=== PATIENT | male | born 1995 | race Caucasian/White ===

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

== ENCOUNTER 2017-04-07 22:02 | Emergency (ER) | payer OTHER ==
[~2017-04-07] VITALS: Ht 175.3 cm; Wt 71.7 kg
[~2017-04-07 22:02] MED LIST changes: -NAPR500T3 PO; +NAPR500T4 PO
--- OUTSIDE RECORDS SUMMARY | 2017-04-07 22:08 | XMS REPORT ---
Author INDIO Joaquin [employer] Address Unknown Phone Unavailable Care Team Providers Care Reference Librarian Name Role Phone INDIO VEGA CP Unavailable Allergies, Adverse Reactions, Alerts Substance Reaction Event Type Methylphenidate 36 Mg Tablet Extended Release 24hr increased impulsivity Non Drug Allergy Problems Problem Type Condition ICD-9 Code Onset Dates Condition Status Assessment Attention deficit disorder of childhood without mention of hyperactivity 314.00 Active Assessment Social phobia 300.23 Active Problem Adjustment disorder with disturbance of conduct 309.3 Active Problem Social phobia 300.23 Active Problem Attention deficit disorder of childhood without mention of hyperactivity 314.00 Active Problem STATE HEP A (ADULT) DX V05.3 Active Problem GARDASIL (HPV) DX V04.89 Active Problem Cough 786.2 Active Problem DTAP TEST V06.1 Active Medications Medication Code System Code Instructions Start Date End Date Status Dosage ZyrTEC NDC 0 10 mg October 16, 2013 1 Tablet by Oral route 1 time per day Adderall XR NDC [address]-52 20 MG Orally in the morning for ADHD August 27, 2014 2 capsule Procedures Procedure Coding System Code Date Office Visit, Est Pt., Level 4 CPT-4 28764 Dec 15, 2014 Vital Signs Date/Time: Dec 15, 2014 Temperature 98.6 F BMIPercentile 26.62 % Weight 132.5 lbs Height 68.5 in BMI 19.85 Index Blood Pressure Diastolic 75 mmHg Blood Pressure Systolic 118 mmHg Cardiac Monitoring Heart Rate 72 bpm Wt Percentile 29.04 % Ht Percentile 40.93 % Results No Known Results Summary Purpose [employer] Submission
--- OUTSIDE RECORDS SUMMARY | 2017-04-07 22:08 | XMS REPORT ---
Author Author OWEN VERGARA Organization [employer] Address Unknown Phone Unavailable Care Team Providers Care Head Of Quality Name Role Phone OWEN VERGARA CP Unavailable Allergies, Adverse Reactions, Alerts Substance Reaction Event Type Methylphenidate 36 Mg Tablet Extended Release 24hr increased impulsivity Non Drug Allergy Problems Problem Type Condition Code Onset Dates Condition Status Assessment Sore throat J02.9 Active Problem Asthma 493.90 Active Problem GERD (gastroesophageal reflux disease) 530.81 Active Problem Unspecified mood [affective] disorder F39 Active Problem Social phobia 300.23 Active Assessment Upper respiratory tract infection, unspecified type 465.9 Active Problem Attention deficit disorder of childhood without mention of hyperactivity 314.00 Active Problem Adjustment disorder with disturbance of conduct 309.3 Active Medications No Known Medications Procedures Procedure Coding System Code Date STREP A ASSAY W/OPTIC CPT-4 61895 May 12, 2015 Office Visit, Est Pt., Level 3 CPT-4 73379 May 12, 2015 Vital Signs Date/Time: May 12, 2015 Temperature 99 F BMIPercentile 51.8 % Weight 145.8 lbs Height 68.5 in BMI 21.84 Index Blood Pressure Diastolic 62 mmHg Blood Pressure Systolic 110 mmHg Cardiac Monitoring Heart Rate 60 bpm Wt Percentile 48.17 % Ht Percentile 39.03 % Results Name Result Date Reference Range Unit Abnormality Flag STREP A (IN HOUSE) ----STREP A Negative [id number] ----Control + [id number] ----Lot # [id number] ----Exp date 11/06/201620150512 Summary Purpose [employer] Submission
--- OUTSIDE RECORDS SUMMARY | 2017-04-07 22:08 | XMS REPORT ---
Author Author INDIO VEGA Organization [employer] Address Unknown Phone Unavailable Care Team Providers Care Electrical Hardware Engineer Name Role Phone INDIO VEGA CP Unavailable Allergies No Known Allergies Problems Problem Type Condition Code Onset Dates Condition Status Problem GERD (gastroesophageal reflux disease) 530.81 Active Problem Attention deficit disorder of childhood without mention of hyperactivity 314.00 Active Problem Asthma 493.90 Active Problem Adjustment disorder with disturbance of conduct 309.3 Active Problem Social phobia 300.23 Active Medications Medication Code System Code Instructions Start Date End Date Status Dosage Adderall XR [facility] [address]-41 20 MG Orally in the morning for ADHD Rebecca to sign for Ekaterina August 27, 2014 2 capsule Results No Known Results Summary Purpose [employer] Submission
--- OUTSIDE RECORDS SUMMARY | 2017-04-07 22:08 | XMS REPORT ---
Author INDIO Joaquin [employer] Address Unknown Phone Unavailable Care Team Providers Care Dietary Aide Name Role Phone INDIO VEGA CP Unavailable Allergies No Known Allergies Problems Problem Type Condition Code Onset Dates Condition Status Problem Asthma 493.90 Active Problem GERD (gastroesophageal reflux disease) 530.81 Active Problem Unspecified mood [affective] disorder F39 Active Problem Social phobia 300.23 Active Problem Attention deficit disorder of childhood without mention of hyperactivity 314.00 Active Problem Adjustment disorder with disturbance of conduct 309.3 Active Medications No Known Medications Results No Known Results Summary Purpose [employer] Submission
--- OUTSIDE RECORDS SUMMARY | 2017-04-07 22:08 | XMS REPORT ---
Author Author CRISTINA COHEN Organization [employer] Address Unknown Phone Unavailable Care Team Providers Care Analysis Consultant Name Role Phone CRISTINA COHEN CP Unavailable Allergies, Adverse Reactions, Alerts Substance Reaction Event Type Methylphenidate 36 Mg Tablet Extended Release 24hr increased impulsivity Non Drug Allergy Problems Problem Type Condition ICD-9 Code Onset Dates Condition Status Problem GERD (gastroesophageal reflux disease) 530.81 Active Problem Attention deficit disorder of childhood without mention of hyperactivity 314.00 Active Problem Asthma 493.90 Active Assessment Aseptic meningitis 047.9 Active Problem Adjustment disorder with disturbance of conduct 309.3 Active Problem Social phobia 300.23 Active Medications Medication Code System Code Instructions Start Date End Date Status Dosage Asmanex HFA [facility] [address]-70 100 MCG/ACT Inhalation Twice a day 2 puffs Protonix [facility] [address]-18 20 MG Orally Once a day 1 tablet ZyrTEC [facility] 0 10 mg October 16, 2013 1 Tablet by Oral route 1 time per day Adderall XR [facility] [address]-48 20 MG Orally in the morning for ADHD August 27, 2014 2 capsule Nasacort Allergy 24HR [facility] [address]406 55 MCG/ACT Nasally Once a day as needed for allergies 1 puff in each nostril Procedures Procedure Coding System Code Date Office Visit, New Pt., Level 3 CPT-4 97439 Dec 16, 2014 Vital Signs Date/Time: Dec 16, 2014 Temperature 97.7 F BMIPercentile 28.8 % Weight 133.5 lbs Height 68.5 in BMI 20.00 Index Blood Pressure Diastolic 78 mmHg Blood Pressure Systolic 106 mmHg Cardiac Monitoring Heart Rate 70 bpm Wt Percentile 30.79 % Ht Percentile 40.93 % Results No Known Results Summary Purpose [employer]Works Submission
--- OUTSIDE RECORDS SUMMARY | 2017-04-07 22:08 | XMS REPORT ---
Author Author BERLIN JUAREZ Organization [employer] Address Unknown Phone Unavailable Care Team Providers Care Generation Manager Name Role Phone BERLIN JUAREZ CP Unavailable Allergies, Adverse Reactions, Alerts Substance Reaction Event Type Methylphenidate 36 Mg Tablet Extended Release 24hr increased impulsivity Non Drug Allergy Problems Problem Type Condition ICD-9 Code Onset Dates Condition Status Problem GERD (gastroesophageal reflux disease) 530.81 Active Problem Attention deficit disorder of childhood without mention of hyperactivity 314.00 Active Problem Asthma 493.90 Active Assessment Allergic rhinitis 477.9 Active Assessment Weight loss 783.21 Active Problem Adjustment disorder with disturbance of conduct 309.3 Active Problem Social phobia 300.23 Active Medications Medication Code System Code Instructions Start Date End Date Status Dosage Adderall XR [facility] [address]-58 20 MG Orally in the morning for ADHD August 27, 2014 2 capsule Asmanex HFA [facility] [address]-33 100 MCG/ACT Inhalation Twice a day 2 puffs ZyrTEC NDC 0 10 mg oral Once a day October 16, 2013 1 Tablet by Oral route 1 time per day Nasacort Allergy 24HR [facility] [address]71 55 MCG/ACT Nasally Once a day as needed for allergies 1 puff in each nostril Protonix [facility] [address]-97 20 MG Orally Once a day 1 tablet Procedures Procedure Coding System Code Date Office Visit, Est Pt., Level 3 CPT-4 58503 Dec 31, 2014 Vital Signs Date/Time: Dec 31, 2014 Cardiac Monitoring Heart Rate 80 bpm Temperature 98.1 F Weight 127 lbs Wt Percentile 19.32 % Blood Pressure Diastolic 62 mmHg Blood Pressure Systolic 120 mmHg Results No Known Results Summary Purpose [employer]Works Submission
--- OUTSIDE RECORDS SUMMARY | 2017-04-07 22:08 | XMS REPORT ---
Author Author HOLLIE RAMÍREZ [facility] [place] [employer] Address Unknown Phone Unavailable Care Team Providers Care Octave Board Racker Name Role Phone HOLLIE RAMÍREZ CP Unavailable Allergies, Adverse Reactions, Alerts Substance Reaction Event Type Methylphenidate 36 Mg Tablet Extended Release 24hr increased impulsivity Non Drug Allergy Problems Problem Type Condition Code Onset Dates Condition Status Assessment Flu vaccine need Z23 Active Assessment Acute pharyngitis, unspecified J02.9 Active Assessment Seasonal allergies J30.2 Active Problem School physical exam Z02.0 Active Problem Asthma 493.90 Active Problem Unspecified mood [affective] disorder F39 Active Problem Adjustment disorder with disturbance of conduct 309.3 Active Problem Social phobia 300.23 Active Problem GERD (gastroesophageal reflux disease) 530.81 Active Problem Attention deficit disorder of childhood without mention of hyperactivity 314.00 Active Medications Medication Code System Code Instructions Start Date End Date Status Dosage Adderall XR [facility] [address]-51 20 MG Orally in the morning for ADHD Navarro to sign for Ekaterina August 27, 2014 2 capsule Claritin [facility] [address]-32 10 MG Orally Once a day Mar 04, 2015 May 03, 2015 1 tablet Procedures Procedure Coding System Code Date STREP A ASSAY W/OPTIC CPT-4 50635 Mar 04, 2015 FLUZONE QUAD (3 & UP)-SINGLE DOSE VIAL-SANOFI PASTEUR-2014 CPT-4 62507 Mar 04, 2015 MEASURE BLOOD OXYGEN LEVEL CPT-4 77522 Mar 04, 2015 Office Visit, Est Pt., Level 3 CPT-4 96623 Mar 04, 2015 SINGLE IMMUNIZATION ADMIN CPT-4 12502 Mar 04, 2015 Vital Signs Date/Time: Mar 04, 2015 BMIPercentile 41.34 % Temperature 98.8 F Wt Percentile 40.02 % Weight 140.2 lbs Height 68.5 in Oximetry 98 % Blood Pressure Diastolic 70 mmHg Blood Pressure Systolic 117 mmHg Cardiac Monitoring Heart Rate 111 bpm Ht Percentile 39.72 % BMI 21.00 Index Results Name Result Date Reference Range Unit Abnormality Flag STREP A (IN HOUSE) Immunizations Vaccine Administration Date FLUZONE QUAD (3 & UP)-SINGLE DOSE VIAL-SANOFI PASTEUR-2014Mar 04, 2015 Summary Purpose [employer]Works Submission
--- OUTSIDE RECORDS SUMMARY | 2017-04-07 22:08 | XMS REPORT ---
Author Author BERLIN JUAREZ Organization [employer] Address Unknown Phone Unavailable Care Team Providers Care Tattoo And Body Artist Name Role Phone BERLIN JUAREZ CP Unavailable Allergies, Adverse Reactions, Alerts Substance Reaction Event Type Methylphenidate 36 Mg Tablet Extended Release 24hr increased impulsivity Non Drug Allergy Problems Problem Type Condition Code Onset Dates Condition Status Assessment Adenopathy, cervical R59.0 Active Assessment Otitis media H66.90 Active Problem School physical exam Z02.0 Active Problem Asthma 493.90 Active Problem Unspecified mood [affective] disorder F39 Active Problem Adjustment disorder with disturbance of conduct 309.3 Active Problem Social phobia 300.23 Active Problem GERD (gastroesophageal reflux disease) 530.81 Active Problem Attention deficit disorder of childhood without mention of hyperactivity 314.00 Active Medications Medication Code System Code Instructions Start Date End Date Status Dosage Augmentin [facility] [address]-60 875-125 MG Orally every 12 hrs Mar 23, 2015 Apr 02, 2015 1 tablet [facility] [address]-43 7.5-325 MG Orally Once a day at hs prn Mar 23, 2015 Mar 30, 2015 1 tablet as needed Procedures Procedure Coding System Code Date THER/PROPH/DIAG INJ, SC/IM CPT-4 96677 Mar 23, 2015 Office Visit, Est Pt., Level 3 CPT-4 18245 Mar 23, 2015 ROCEPHIN 1 GM (IM) CPT-4 J0696 Mar 23, 2015 Vital Signs Date/Time: Mar 23, 2015 Temperature 98.6 F BMIPercentile 59.09 % Weight 148.8 lbs Height 68.5 in BMI 22.29 Index Blood Pressure Diastolic 70 mmHg Blood Pressure Systolic 118 mmHg Cardiac Monitoring Heart Rate 74 bpm Wt Percentile 54.65 % Ht Percentile 39.72 % Results No Known Results Summary Purpose [employer]ClinicalWorks Submission
--- OUTSIDE RECORDS SUMMARY | 2017-04-07 22:08 | XMS REPORT ---
Author Author INDIO VEGA Organization [employer] Address Unknown Phone Unavailable Care Team Providers Care Privacy Analyst Name Role Phone INDIO VEGA CP Unavailable [...] Date End Date Status Dosage Adderall XR [facility] [address]-55 20 MG Orally in the morning for ADHD Navarro to sign for Ekaterina August 27, 2014 2 capsule Results No Known Results Summary Purpose [employer]Works Submission
--- OUTSIDE RECORDS SUMMARY | 2017-04-07 22:08 | XMS REPORT ---
Author JHON Harrell Organization [employer] Address Unknown Phone Unavailable Care Team Providers Care Ground Instructor Basic Name Role Phone JHON CHACON CP Unavailable Allergies No Known Allergies Problems Problem Type Condition ICD-9 Code Onset Dates Condition Status Problem GERD (gastroesophageal reflux disease) 530.81 Active Problem Attention deficit disorder of childhood without mention of hyperactivity 314.00 Active Problem Asthma 493.90 Active Assessment TB skin/subcutaneous 017.00 Active Problem Adjustment disorder with disturbance of conduct 309.3 Active Problem Social phobia 300.23 Active Medications No Known Medications Results No Known Results Summary Purpose [employer] Submission
--- OUTSIDE RECORDS SUMMARY | 2017-04-07 22:08 | XMS REPORT ---
Author Author CRISTINA COHEN [facility] [employer] Address Unknown Phone Unavailable Care Team Providers Care Metal Reed Tuner Name Role Phone CRISTINA COHEN CP Unavailable [...]
--- OUTSIDE RECORDS SUMMARY | 2017-04-07 22:09 | XMS REPORT ---
Author Author OWEN VERGARA Organization [employer] Address Unknown Phone Unavailable Care Team Providers Care Factory Superintendent Name Role Phone OWEN VERGARA CP Unavailable Allergies, Adverse Reactions, Alerts Substance Reaction Event Type Methylphenidate 36 Mg Tablet Extended Release 24hr increased impulsivity Non Drug Allergy Problems Problem Type Condition Code Onset Dates Condition Status Problem Asthma 493.90 Active Problem GERD (gastroesophageal reflux disease) 530.81 Active Problem School physical exam Z02.0 Active Problem Social phobia 300.23 Active Assessment School physical exam Z02.0 Active Problem Attention deficit disorder of childhood without mention of hyperactivity 314.00 Active Problem Adjustment disorder with disturbance of conduct 309.3 Active Medications Medication Code System Code Instructions Start Date End Date Status Dosage Adderall XR [facility] [address]-20 20 MG Orally in the morning for ADHD Navarro to sign for Ekaterina August 27, 2014 2 capsule Procedures Procedure Coding System Code Date Office Visit, Est Pt., Level 3 CPT-4 18312 Mar 03, 2015 Vital Signs Date/Time: Mar 03, 2015 Temperature 98.7 F BMIPercentile 41.34 % Weight 140.2 lbs Height 68.5 in BMI 21.00 Index Blood Pressure Diastolic 70 mmHg Blood Pressure Systolic 116 mmHg Cardiac Monitoring Heart Rate 70 bpm Wt Percentile 40.02 % Ht Percentile 39.72 % Results No Known Results Summary Purpose [employer]ClinicalWorks Submission
--- OUTSIDE RECORDS SUMMARY | 2017-04-07 22:09 | XMS REPORT ---
Author Author INDIO VEGA [employer] Address Unknown Phone Unavailable Care Team Providers Care Motorcycle Technician Name Role Phone INDIO VEGA CP Unavailable Allergies No Known Allergies Problems Problem Type Condition Code Onset Dates Condition Status Problem School physical exam Z02.0 Active Problem [...] Date End Date Status Dosage Adderall XR [facility] [address]-60 20 MG Orally in the morning for ADHD Dr Amaya to sign for Ekaterina August 27, 2014 2 capsule Results No Known Results Summary Purpose [employer]ClinicalWorks Submission
--- OUTSIDE RECORDS SUMMARY | 2017-04-07 22:09 | XMS REPORT ---
Author JUSTIN Mcmahon Organization [employer] Address Unknown Phone Unavailable Care Team Providers Care Beauty Culturist Apprentice Name Role Phone JUSTIN OVALLE CP Unavailable Allergies No Known Allergies Problems Problem Type Condition ICD-9 Code Onset Dates Condition Status Problem GERD (gastroesophageal reflux disease) 530.81 Active Problem Attention deficit disorder of childhood without mention of hyperactivity 314.00 Active Problem Asthma 493.90 Active Assessment Encounter for PPD test V74.1 Active Problem Adjustment disorder with disturbance of conduct 309.3 Active Problem Social phobia 300.23 Active Medications No Known Medications Procedures Procedure Coding System Code Date TB INTRADERMAL TEST CPT-4 18712 Dec 29, 2014 Results No Known Results Summary Purpose [employer]Works Submission
--- OUTSIDE RECORDS SUMMARY | 2017-04-07 22:09 | XMS REPORT ---
Author Author ROMY GRAHAM Organization [employer] Address Unknown Phone Unavailable Care Team Providers Care Resource Engineer Name Role Phone ROMY GRAHAM CP Unavailable Allergies No Known Allergies Problems Problem Type Condition Code Onset Dates Condition Status Assessment Unspecified mood [affective] disorder F39 Active Assessment Attention deficit disorder of childhood without mention of hyperactivity 314.00 Active Problem School physical exam Z02.0 Active Problem Asthma 493.90 Active Problem Unspecified mood [affective] disorder F39 Active Problem Adjustment disorder with disturbance of conduct 309.3 Active Problem Social phobia 300.23 Active Problem GERD (gastroesophageal reflux disease) 530.81 Active Problem Attention deficit disorder of childhood without mention of hyperactivity 314.00 Active Medications No Known Medications Procedures Procedure Coding System Code Date Psych diagnostic evaluation, established patient CPT-4 09832 Mar 04, 2015 Results No Known Results Summary Purpose [employer]ClinicalWorks Submission
--- OUTSIDE RECORDS SUMMARY | 2017-04-07 22:09 | XMS REPORT ---
Author DARA Higgins Organization [employer] Address Unknown Phone Unavailable Care Team Providers Care Hand Cloth Folder Name Role Phone DARA ODOM CP Unavailable Allergies, Adverse Reactions, Alerts Substance Reaction Event Type Methylphenidate 36 Mg Tablet Extended Release 24hr increased impulsivity Non Drug Allergy Problems Problem Type Condition Code Onset Dates Condition Status Problem GERD (gastroesophageal reflux disease) 530.81 Active Problem Attention deficit disorder of childhood without mention of hyperactivity 314.00 Active Problem Asthma 493.90 Active Assessment URI (upper respiratory infection) J06.9 Active Problem Adjustment disorder with disturbance of conduct 309.3 Active Problem Social phobia 300.23 Active Medications Medication Code System Code Instructions Start Date End Date Status Dosage Lexapro [facility] [address]-51 10 MG Orally Once a day Jan 26, 2015 1 tablet Nasacort Allergy 24HR [facility] [address]70-[address]40 55 MCG/ACT Nasally Once a day as needed for allergies 1 puff in each nostril Adderall XR [facility] [address]-67 20 MG Orally in the morning for ADHD Rebecca to sign for Ekaterina August 27, 2014 2 capsule Zyrtec Allergy [facility] [address]-92 10 MG Orally Once a day prn Feb 10, 2015 Mar 12, 2015 1 capsule as needed Procedures Procedure Coding System Code Date Office Visit, Est Pt., Level 3 CPT-4 14521 Feb 10, 2015 Vital Signs Date/Time: Feb 10, 2015 Temperature 98.5 F BMIPercentile 31.11 % Weight 135.2 lbs Height 68.5 in BMI 20.26 Index Blood Pressure Diastolic 82 mmHg Blood Pressure Systolic 116 mmHg Cardiac Monitoring Heart Rate 84 bpm Wt Percentile 32.07 % Ht Percentile 40.1 % Results No Known Results Summary Purpose [employer] Submission
--- OUTSIDE RECORDS SUMMARY | 2017-04-07 22:09 | XMS REPORT ---
Author Author INDIO VEGA [employer] Address Unknown Phone Unavailable Care Team Providers Care Sales Director Name Role Phone INDIO VEGA CP Unavailable Allergies, Adverse Reactions, Alerts Substance Reaction Event Type Methylphenidate 36 Mg Tablet Extended Release 24hr increased impulsivity Non Drug Allergy Problems Problem Type Condition Code Onset Dates Condition Status Problem GERD (gastroesophageal reflux disease) 530.81 Active Problem Attention deficit disorder of childhood without mention of hyperactivity 314.00 Active Problem Asthma 493.90 Active Assessment JASWANT (generalized anxiety disorder) F41.1 Active Assessment ADHD (attention deficit hyperactivity disorder), combined type F90.2 Active Problem Adjustment disorder with disturbance of conduct 309.3 Active Problem Social phobia 300.23 Active Medications Medication Code System Code Instructions Start Date End Date Status Dosage Asmanex HFA [facility] [address]-96 100 MCG/ACT Inhalation Twice a day 2 puffs Lexapro [facility] [address]-87 10 MG Orally Once a day Jan 26, 2015 1 tablet Nasacort Allergy 24HR [facility] [address]39 55 MCG/ACT Nasally Once a day as needed for allergies 1 puff in each nostril Adderall XR [facility] [address]-37 20 MG Orally in the morning for ADHD Rebecca to sign for Ekaterina August 27, 2014 2 capsule ZyrTEC ND 0 10 mg oral Once a day October 16, 2013 1 Tablet by Oral route 1 time per day Procedures Procedure Coding System Code Date Office Visit, Est Pt., Level 4 CPT-4 34943 Jan 26, 2015 Vital Signs Date/Time: Jan 26, 2015 Cardiac Monitoring Heart Rate 68 bpm Weight 140.4 lbs Height 68.5 in Ht Percentile 40.1 % BMI 21.03 Index Blood Pressure Diastolic 80 mmHg Blood Pressure Systolic 120 mmHg BMIPercentile 42.57 % Wt Percentile 41.23 % Results No Known Results Summary Purpose [employer] Submission
--- OUTSIDE RECORDS SUMMARY | 2017-04-07 22:09 | XMS REPORT ---
Author FREDERICK Hartman [facility] [employer] Address Unknown Phone Unavailable Care Team Providers Care Culture Media Laboratory Assistant Name Role Phone FREDERICK CARLSON Unavailable Allergies, Adverse Reactions, Alerts Substance Reaction Event Type Methylphenidate 36 Mg Tablet Extended Release 24hr increased impulsivity Non Drug Allergy Problems Problem Type Condition Code Onset Dates Condition Status Assessment Chronic fatigue R53.82 Active Assessment Contusion of rib on right side, initial encounter S20.211A Active Problem Asthma 493.90 Active Problem GERD (gastroesophageal reflux disease) 530.81 Active Problem Unspecified mood [affective] disorder F39 Active Problem Social phobia 300.23 Active Assessment Body aches R52 Active Problem Attention deficit disorder of childhood without mention of hyperactivity 314.00 Active Problem Adjustment disorder with disturbance of conduct 309.3 Active Medications Medication Code System Code Instructions Start Date End Date Status Dosage Adderall XR [facility] [address]-51 20 MG Orally in the morning for ADHD Dr Amaya to sign for Ekaterina August 27, 2014 2 capsule Procedures Procedure Coding System Code Date COMPREHEN METABOLIC PANEL CPT-4 98662 Apr 27, 2015 ASSAY OF FREE THYROXINE CPT-4 36558 Apr 27, 2015 ASSAY OF CPK IN BLOOD CPT-4 79445 Apr 27, 2015 ASSAY OF FERRITIN CPT-4 33228 Apr 27, 2015 ASSAY OF IRON CPT-4 31089 Apr 27, 2015 ASSAY THYROID STIM HORMONE CPT-4 51755 Apr 27, 2015 RBC SED RATE, AUTOMATED CPT-4 71832 Apr 27, 2015 ASSAY OF CK (CPK) CPT-4 18070 Apr 27, 2015 ANTINUCLEAR ANTIBODIES CPT-4 99568 Apr 27, 2015 MANUAL CELL COUNT, EACH CPT-4 38019 Apr 27, 2015 COMPLEMENT, ANTIGEN CPT-4 56862 Apr 27, 2015 VENIPUNCT, ROUTINE* CPT-4 43656 Apr 27, 2015 IRON BINDING TEST CPT-4 51998 Apr 27, 2015 Office Visit, Est Pt., Level 4 CPT-4 41482 Apr 27, 2015 HETEROPHILE ANTIBODIES CPT-4 48214 Apr 27, 2015 Vital Signs Date/Time: Apr 27, 2015 Temperature 98.4 F BMIPercentile 54.87 % Weight 147.3 lbs Height 68.5 in BMI 22.07 Index Blood Pressure Diastolic 72 mmHg Blood Pressure Systolic 108 mmHg Cardiac Monitoring Heart Rate 62 bpm Wt Percentile 50.68 % Ht Percentile 39.03 % Results Name Result Date Reference Range Unit Abnormality Flag MONO TEST (IN HOUSE) ----RESULTS Negative [id number] ----Control Positive [id number] ----Lot # [id number] ----Exp date 06/14/[id number] ROUTINE VENIPUNCTURE Summary Purpose [employer] Submission
--- OUTSIDE RECORDS SUMMARY | 2017-04-07 22:09 | XMS REPORT ---
Author Author ROMY GRAHAM Organization [employer] Address Unknown Phone Unavailable Care Team Providers Care Milk Tanker Driver Name Role Phone ROMY GRAHAM CP Unavailable Allergies No Known Allergies Problems Problem Type Condition Code Onset Dates Condition Status Assessment Unspecified mood [affective] disorder F39 Active Problem Asthma 493.90 Active Problem GERD (gastroesophageal reflux disease) 530.81 Active Problem Unspecified mood [affective] disorder F39 Active Problem Social phobia 300.23 Active Assessment Attention deficit disorder of childhood without mention of hyperactivity 314.00 Active Problem Attention deficit disorder of childhood without mention of hyperactivity 314.00 Active Problem Adjustment disorder with disturbance of conduct 309.3 Active Medications No Known Medications Procedures Procedure Coding System Code Date Psychotherapy, patient &/family, 30 minutes, established patient CPT-4 08785 Apr 29, 2015 Results No Known Results Summary Purpose [employer] Submission
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
[2017-04-07] MEDS ORDERED: RT-ALBUTEROL/IPRATROPIUM 3 ML (DUONEB) VIAL INH ONE (22:30)
[2017-04-07 22:41] LABS: BASOPHILS % (AUTO) 0 % (0-10); EOSINOPHILS # (AUTO) 0.1 10^3/uL (0.0-0.3); EOSINOPHILS % (AUTO) 1 % (0-10); LYMPHOCYTES # (AUTO) 2.3 X 10^3 (1.0-4.0); LYMPHOCYTES % (AUTO) 15 % (12-44); MEAN CORPUSCULAR HEMOGLOBIN 31 PG (25-34); MEAN CORPUSCULAR HGB CONC 34 G/DL (32-36); MEAN CORPUSCULAR VOLUME 92 FL (80-99); MEAN PLATELET VOLUME 9.6 FL (7.4-10.4); MONOCYTES # (AUTO) 1.9 X 10^3 (0.0-1.0); MONOCYTES % (AUTO) 13 % (0-12); NEUTROPHILS # (AUTO) 10.6 X 10^3 (1.8-7.8); NEUTROPHILS % (AUTO) 71 % (42-75); PLATELET COUNT 256 10^3/uL (130-400); RED BLOOD COUNT 4.49 10^6/uL (4.35-5.85); RED CELL DISTRIBUTION WIDTH 14.4 % (10.0-14.5); WHITE BLOOD COUNT 14.9 10^3/uL (4.3-11.0)
[2017-04-07 23:08] LABS: ALANINE AMINOTRANSFERASE 195 U/L (0-55); ALBUMIN 4.1 GM/DL (3.2-4.5); ANION GAP 11 MMOL/L (5-14); ASPARTATE AMINO TRANSFERASE 149 U/L (5-34); BILIRUBIN,TOTAL 0.5 MG/DL (0.1-1.0); BLOOD UREA NITROGEN 11 MG/DL (7-18); BUN/CREATININE RATIO 13; CALCIUM 8.9 MG/DL (8.5-10.1); CARBON DIOXIDE 20 MMOL/L (21-32); CHLORIDE 109 MMOL/L (98-107); CREATININE SERUM 0.82 MG/DL (0.60-1.30); GFR ESTIMATED > 60; GLUCOSE 113 MG/DL (70-105); POTASSIUM 3.6 MMOL/L (3.6-5.0); SODIUM 140 MMOL/L (135-145); TOTAL PROTEIN 6.3 GM/DL (6.4-8.2)
[2017-04-07 23:12] LABS: BAND NEUTROPHILS 0 %; LYMPHOCYTES % (MANUAL) 17 %; NEUTROPHILS % (MANUAL) 69 %
[2017-04-07 23:13] LABS: ANISOCYTOSIS SLIGHT; BASOPHILS % (MANUAL) 0 %; EOSINOPHILS % (MANUAL) 0 %; POIKILOCYTOSIS SLIGHT; REACTIVE LYMPHOCYTES 4 %
[2017-04-07] MEDS ORDERED: cefTRIAXone INJECTION 1,000 MG in NS (IVPB) 50 ML IV ONE (23:15)
[2017-04-07] MEDS ORDERED: RX-ALBUTEROL INHALER (PROAIR) 8 GM IH STA (23:18)
[2017-04-07] MEDS ORDERED: CEFD300C3 PO (23:22)
[2017-04-07] MEDS ORDERED: GUAI1TBM19 PO (23:22)
[2017-04-07] MEDS ORDERED: BENZ-13 PO (23:22)
[2017-04-07] MEDS ORDERED: D-ME118S7 PO (23:22)
--- NOTE | 2017-04-07 23:26 | ED Cough/URI ---
General Chief Complaint: Cough/Cold/Flu Symptoms Stated Complaint: COUGH,CONGESTION Nursing Triage Note: PT TO ED 10 W/ C/O COUGH X1 WK. REPORTS WAS SEEN BY DR CONWAY X2 DAYS AGO BUT DENIES IMPROVEMENT. DOES REPORT ELEVATED TEMP THROUGHOUT THE WEEK. NO OTHER C/O VOICED Source: patient History of Present Illness Time seen by provider: 22:10 Initial Comments C/O NON-PRODUCTIVE COUGH AND FEVER X 1 WEEK TEMP HAS BEEN UP TO 102.8 ALL WEEK HAS SOME SHORTNESS OF BREATH AND WHEEZING AFTER COUGHING HARD SYMPTOMS WORSE X 2 DAYS CHANTELL IS CURRENTLY IN HOSPITAL WITH PNEUMONIA AND HE HAS BEEN VISITING HER THIS WEEK PT IS HOME ON LEAVE FOR 21 DAYS, FROM [address]. PT IS STATIONED IN [place] WAS SEEN BY POTATO PICKER AT DR. 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 [place] Allergies and Home Medications Allergies Coded Allergies: No Known Drug Allergies (Verified , 05/17/09) Home Medications Azithromycin 500 Mg Tablet, 500 MG PO DAILY, #5 FOR INFECTION Prescribed by: MARTÍN SALGADO on 04/07/17 2340 Benzonatate 100 Mg Capsule, 1-2 TAB PO TID, #30 Prescribed by: MARTÍN SALGADO on 04/07/17 2322 Cefdinir 300 Mg Capsule, 300 MG PO BID, #20 Prescribed by: MARTÍN SALGADO on 04/07/17 2322 D-Methorphan Hb/Prometh HCl 118 Ml Syrup, 1-2 TSP PO Q4H, #120 Prescribed by: MARTÍN SALGADO on 04/07/17 2322 Guaifenesin/Dextromethorphan 1 Each Tbmp.12hr, 1 EACH PO BID for 10 Days, #20 Prescribed by: MARTÍN SALGADO on 04/07/17 2322 Constitutional: see HPI, fever EENTM: see HPI, nose congestion Respiratory: see HPI, cough, short of breath, wheezing Cardiovascular: no symptoms reported Gastrointestinal: no symptoms reported Genitourinary: no symptoms reported Musculoskeletal: no symptoms reported Skin: no symptoms reported Psychiatric/Neurological: No Symptoms Reported Hematologic/Lymphatic: No Symptoms Reported Immunological/Allergic: see HPI Past Itpxhkl-Gyknsw-Ngteow Hx Patient Social History Alcohol Use: Denies Use Recreational Drug Use: No Smoking Status: Never a Smoker Recent Foreign Travel: No Contact w/Someone Who Travel: No Recent Infectious Disease Expo: No Recent Hopitalizations: Yes (PNEUMONIA AND ABD PAIN) Ebola Symptoms: Denies Symptoms Listed Immunizations Up To Date Tetanus Booster (TDap): Less than 5yrs PED Vaccines UTD: Yes Date of Influenza Vaccine: Jan 13, 2014 Seasonal Allergies Seasonal Allergies: No Surgeries History of Surgeries: Yes (RESECTION OF EPIDIDYMAL CYST, BMT'S; COLONOSCOPY) Surgeries: Adenoidectomy, Ear Surgery, Testicular, Tonsillectomy Respiratory History of Respiratory Disorde: Yes (EXERCISE INDUCED ASTHMA, FREQUENT BOUTS OF PNEUMONIA A CHILD) Respiratory Disorders: Asthma, Pneumonia Currently Using CPAP: No Currently Using BIPAP: No Cardiovascular History of Cardiac Disorders: No Neurological History of Neurological Disord: Yes (TOURETTE'S, 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) Neurological Disorders: Meningitis Reproductive System Hx Reproductive Disorders: No Sexually Transmitted Disease: No HIV/AIDS: No Gastrointestinal History of Gastrointestinal Di: Yes Gastrointestinal Disorders: Ulcer, Irritable Bowel Musculoskeletal History of Musculoskeletal Dis: Yes (RIGHT ARM FX, FINGERS/TOES FX) Musculoskeletal Disorders: Fractures Endocrine History of Endocrine Disorders: Yes Endocrine Disorders: Lupus HEENT History of HEENT Disorders: Yes HEENT Disorders: Chronic Ear Infection Cancer History of Cancer: No Psychosocial History of Psychiatric Problem: Yes (MOOD DISORDER) Behavioral Health Disorders: ADD/ADHD Integumentary History of Skin or Integumenta: No Blood Transfusions History of Blood Disorders: No Adverse Reaction to a Blood Tr: No Family Medical History Family Medial History: FH: Raynaud's phenomenon FH: depression 19 MOTHER G8 SISTER FH: lupus erythematosus 19 MOTHER G8 SISTER FH: osteoporosis 19 MOTHER FH: skin cancer 19 MOTHER Leesa thyroiditis 19 MOTHER Hemolytic anemia 19 MOTHER Hypertension 19 FATHER Hypotension 19 MOTHER POST TRAUMATIC STRESS DISORDER 19 MOTHER No Family History of: AIDS Abdominal aortic aneurysm Danial's disease Alcoholism Alzheimer's disease Aphasia Arthritis Asthma Cancer of mouth Cardiovascular disease Cataracts Colon cancer Completed stroke Congenital disease Congenital heart disease Coronary thrombosis Cystic fibrosis Deafness or hearing loss Dementia Diabetes mellitus Drug abuse Dysphasia Fibrocystic disease of breast Gastroenteritis Glaucoma Headache disorder Hypercholesterolemia Infertility Kidney disease Myocardial infarction Neoplasm Not obtainable due to adoption Osteoporosis Parkinson's disease Prostate cancer Psychosocial problem Respiratory disorder Seizure disorder Severe allergy Thyroid disease Tuberculosis Visual disorder Physical Exam Vital Signs Vital Sign - Last 12Hours 04/07/17 04/07/17 22:07 23:22 Temp 98.5 Pulse 119 Resp 20 B/P (MAP) 137/95 Pulse Ox 96 O2 Delivery Room Air Capillary Refill : General Appearance: WD/WN, no apparent distress, other (FREQUENT TIGHT COUGH) HEENT: PERRL/EOMI, TMs normal, pharynx normal, other (NASAL MUCOSAL EDEMA) Neck: non-tender, full range of motion, supple, normal inspection Respiratory: no respiratory distress, no accessory muscle use, decreased breath sounds (MILDLY DIMINISHED IN ALL LUNG RENDON) Cardiovascular: normal peripheral pulses, regular rate, rhythm, no murmur Gastrointestinal: normal bowel sounds, non tender, soft Extremities: normal inspection Neurologic/Psychiatric: assembler knife II-XII nml as tested, no motor/sensory deficits, alert, normal mood/affect, oriented x 3 Skin: normal color, warm/dry, No rash Focused Exam Evaluation Lactate Level Laboratory Tests 04/07/17 23:10: Lactic Acid Level 1.09 Lactic Acid Level Laboratory Tests Test 04/07/17 23:10 Lactic Acid Level 1.09 MMOL/L (0.50-2.00) Progress/Results/Core Measures Suspected Sepsis SIRS Temperature:98.5 Pulse: Respiratory Rate: Laboratory Tests 04/07/17 22:28: White Blood Count 14.9H Blood Pressure / Mean: Laboratory Tests 04/07/17 23:10: Lactic Acid Level 1.09 Laboratory Tests 04/07/17 22:28: Creatinine 0.82, Platelet Count 256, Total Bilirubin 0.5 Results/Orders Lab Results Laboratory Tests Test 04/07/17 22:28 04/07/17 23:10 Range/Units White Blood Count 14.9 H 4.3-11.0 10^3/uL Red Blood Count 4.49 4.35-5.85 10^6/uL Hemoglobin 14.1 13.3-17.7 G/DL Hematocrit 42 40-54 % Mean Corpuscular Volume 92 80-99 FL Mean Corpuscular Hemoglobin 31 25-34 PG Mean Corpuscular Hemoglobin Concent 34 32-36 G/DL Red Cell Distribution Width 14.4 10.0-14.5 % Platelet Count 256 130-400 10^3/uL Mean Platelet Volume 9.6 7.4-10.4 FL Neutrophils (%) (Auto) 71 42-75 % Lymphocytes (%) (Auto) 15 12-44 % Monocytes (%) (Auto) 13 H 0-12 % Eosinophils (%) (Auto) 1 0-10 % Basophils (%) (Auto) 0 0-10 % Neutrophils # (Auto) 10.6 H 1.8-7.8 X 10^3 Lymphocytes # (Auto) 2.3 1.0-4.0 X 10^3 Monocytes # (Auto) 1.9 H 0.0-1.0 X 10^3 Eosinophils # (Auto) 0.1 0.0-0.3 10^3/uL Basophils # (Auto) 0.0 0.0-0.1 10^3/uL Neutrophils % (Manual) 69 % Lymphocytes % (Manual) 17 % Monocytes % (Manual) 10 % Eosinophils % (Manual) 0 % Basophils % (Manual) 0 % Band Neutrophils 0 % Hypersegmented Neutrophils SLIGHT Reactive Lymphocytes 4 % Poikilocytosis SLIGHT Anisocytosis SLIGHT Elliptocytes SLIGHT Sodium Level 140 135-145 MMOL/L Potassium Level 3.6 3.6-5.0 MMOL/L Chloride Level 109 H 98-107 MMOL/L Carbon Dioxide Level 20 L 21-32 MMOL/L Anion Gap 11 5-14 MMOL/L Blood Urea Nitrogen 11 7-18 MG/DL Creatinine 0.82 0.60-1.30 MG/DL Estimat Glomerular Filtration Rate > 60 BUN/Creatinine Ratio 13 Glucose Level 113 H 70-105 MG/DL Calcium Level 8.9 8.5-10.1 MG/DL Total Bilirubin 0.5 0.1-1.0 MG/DL Aspartate Amino Transf (AST/SGOT) 149 H 5-34 U/L Alanine Aminotransferase (ALT/SGPT) 195 H 0-55 U/L Alkaline Phosphatase 102 40-136 U/L Total Protein 6.3 L 6.4-8.2 GM/DL Albumin 4.1 3.2-4.5 GM/DL Lactic Acid Level 1.09 0.50-2.00 MMOL/L Micro Results Microbiology 04/07/17 Influenza Types A,B Antigen (MAYELA) - Final, Complete My Orders Orders - MARTÍN SALGADO DO Influenza A And B Antigens (04/07/17 22:08) Saline Lock/Iv-Start (04/07/17 22:18) Cbc With Automated Diff (04/07/17 22:18) Comprehensive Metabolic Panel (04/07/17 22:18) Lactic Acid Analyzer (04/07/17 22:18) Blood Culture (04/07/17 22:18) Chest Pa/Lat (2 View) (04/07/17 22:18) Albuterol/Ipra Inhalation Soln (Duoneb I (04/07/17 22:30) Rt Request For Service (04/07/17 22:18) Svn Sm Volume Nebulizer Rt-Rfs (04/07/17 22:18) Manual Differential (04/07/17 22:28) Ceftriaxone Injection (Rocephin Injectio (04/07/17 23:15) Benzonatate Capsule (Tessalon Perles) (04/07/17 23:30) Promethazine/ Codeine Syrup (Phenergan W (04/07/17 23:30) Azithromycin Tablet (Zithromax Tablet) (04/07/17 23:30) Methylprednisolone Sod Succ (Solu-Medrol (04/07/17 23:30) Rx-Albuterol Inhaler (Rx-Proair) (04/07/17 23:18) Hepatitis Panel Acute (04/07/17 23:19) Medications Given in ED Current Medications Medications Dose Ordered Sig/Shashi Route Start Time Stop Time Status Last Admin Dose Admin Albuterol/ Ipratropium 3 ml ONCE ONCE INH 04/07/17 22:30 04/07/17 22:31 DC 04/07/17 23:21 3 ML Azithromycin 500 mg ONCE ONCE PO 04/07/17 23:30 12 23:31 DC 04/07/17 23:28 500 MG Ceftriaxone Sodium 1000 mg/ Sodium Chloride 50 ml @ 100 mls/hr ONCE ONCE IV 04/07/17 23:15 12 23:44 DC 04/07/17 23:25 100 MLS/HR Methylprednisolone Sodium Succinate 125 mg ONCE ONCE IVP 04/07/17 23:30 04/07/17 23:59 DC 04/07/17 23:48 125 MG Promethazine HCl/ Codeine 5 ml ONCE ONCE PO 04/07/17 23:30 04/07/17 23:31 DC 04/07/17 23:28 5 ML Vital Signs/I&O Vital Sign - Last 12Hours 04/07/17 04/07/17 22:07 23:22 Temp 98.5 Pulse 119 Resp 20 B/P (MAP) 137/95 Pulse Ox 96 O2 Delivery Room Air Room Air Intake and Output 04/08/17 00:00 Intake Total 50 ml Balance 50 ml Capillary Refill : Progress Note : Progress Note SOME INCREASE IN AERATION AFTER NEB TREATMENT, WITH MILD IMPROVEMENT IN COUGH-- PT STATES HE FEELS BETTER NO DETERIORATION IN PT'S CONDITION DURING ER STAY ADVISED PT OF NEED FOR FOLLOW UP TO RECHECK LIVER ENZYMES Diagnostic Imaging Comments CXR--NO ACUTE PROCESS, PENDING RADIOLOGIST REVIEW Reviewed: Reviewed by Me Departure Impression Impression: Primary Impression: Bronchitis Additional Impressions: Elevated liver enzymes History of lupus Disposition: HOME, SELF-CARE Condition: Stable Departure-Patient Inst. Referrals: YASSINE CONWAY MD (PCP/Family) Primary Care Physician Patient Instructions: Acute Bronchitis, Adult (DC), Liver Cancer (DC) Add. Discharge Instructions: LOTS OF CLEAR LIQUIDS USE INHALER WITH SPACER--2 PUFFS EVERY 4 HOURS NEEDED FOR BREATHING TAKE PREDNISONE 45 MG DAILY X 3 DAYS, THEN 40 MG DAILY X 3 DAYS, THEN 35 MG DAILY X 3 DAYS, THEN 30 MG DAILY X 3 DAYS, AND SO ON--UNTIL YOU ARE BACK DOWN TO 15 MG A DAY. MOTRIN NEEDED FOR PAIN OR FEVER AVOID TYLENOL AVOID ALCOHOL FOLLOW UP WITH DR CONWAY IN 3-4 DAYS IF NO BETTER RETURN TO ER IF WORSE All discharge instructions reviewed with patient and/or family. Voiced understanding. Scripts Azithromycin (Zithromax) 500 Mg Tablet 500 MG PO DAILY, #5 TAB FOR INFECTION Prov: MARTÍN SALGADO DO 04/07/17 Benzonatate (Tessalon Perle) 100 Mg Capsule 1-2 TAB PO TID for Cough, #30 CAP Prov: MARTÍN SALGADO DO 04/07/17 D-Methorphan Hb/Prometh HCl (Promethazine-Dm Syrup) 118 Ml Syrup 1-2 TSP PO Q4H for Cough, #120 ML Prov: MARTÍN SALGADO DO 04/07/17 Guaifenesin/Dextromethorphan (Mucinex Dm ER 1,200-60 mg Tab) 1 Each Tbmp.12hr 1 EACH PO BID for 10 Days, #20 EA Prov: MARTÍN SALGADO DO 04/07/17 Cefdinir (Cefdinir) 300 Mg Capsule 300 MG PO BID for FOR INFECTION, #20 CAP Prov: MARTÍN SALGADO DO 04/07/17 MARTÍN SALGADO DO Apr 07, 2017 23:26
[2017-04-07] MEDS ORDERED: BENZONATATE 100 MG (TESSALON) CAPSULE PO SCH (23:30)
[2017-04-07] MEDS ORDERED: PROMETHAZINE/ CODEINE SYRUP 5 ML UDC PO ONE (23:30)
[2017-04-07] MEDS ORDERED: AZITHROMYCIN 250 MG TAB (ZITHROMAX) PO ONE (23:30)
[2017-04-07] MEDS ORDERED: methylPREDNISolone 125 MG (Solu-MEDROL) VIAL IVP ONE (23:30)
[2017-04-07] MEDS ORDERED: AZIT500T PO (23:40)
--- NOTE | 2017-04-08 07:29 | Diagnostic Imaging Report ---
Clinical indication: Patient with cough and congestion x1 week. Exam: Chest x-ray PA and lateral views. Comparisons: Chest x-ray dated 09/14/2014. Findings: Lungs/pleura: Lungs are clear. There is no pneumothorax. There is no pleural effusion. Mediastinum: Unremarkable. Pulmonary vasculature: Unremarkable. Heart: Unremarkable. Bones/extrathoracic soft tissue: Unremarkable. Impression: There is no radiographic evidence of acute cardiopulmonary process. Dictated by: Dictated on workstation # [id number]
== END 2017-04-07 23:58 | disposition home or self-care (01) ==
LOC: EDUNIT# 22:02 → ER 22:03
DX: J40 Bronchitis, not specified as acute or chronic (principal); R94.5 Abnormal results of liver function studies; J45.909 Unspecified asthma, uncomplicated; F90.9 Attention-deficit hyperactivity disorder, unspecified type; Z86.61 Personal history of infections of the central nervous system; Z87.19 Personal history of other diseases of the digestive system; Z87.39 Personal history of other diseases of the musculoskeletal system and connective tissue; Z87.01 Personal history of pneumonia (recurrent); Z90.89 Acquired absence of other organs
CPT/HCPCS: 36415; 71020; 80053; 80074; 83605; 85007; 85027; 87040; 87804; 94640; 94664

== ENCOUNTER 2017-04-08 19:15 | Emergency (ER) | payer OTHER ==
[~2017-04-08] VITALS: Ht 175.3 cm; Wt 71.7 kg
[~2017-04-08 19:15] MED LIST changes: +AZIT500T PO; +BENZ-13 PO; +CEFD300C3 PO; +D-ME118S7 PO; +GUAI1TBM19 PO
--- OUTSIDE RECORDS SUMMARY | 2017-04-08 19:22 | XMS REPORT | Continuity of Care Document ---
Author Author [facility] Address Unknown Phone Unavailable Allergies Active Description Code Type Severity Reaction Onset Reported/Identified Relationship to Patient Clinical Status Yes No Known Drug Allergies [id number] Drug Allergy Unknown N/A 05/17/2009 Yes methylphenidate [...] CARLSON DO V04.89 GARDASIL (HPV) DX 08/07/2012 INDIO VEGA [...] VEGA APRN 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 08/15/2013 GARY LOAD OUT WORKER, INDIO J 309.3 AD ADJ D/O DIS CON 08/15/2013 GARY LOAD OUT WORKERBOBBYINDIO J 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 08/15/2013 WANDA VEGA APRNA J 309.3 AD ADJ D/O DIS CON 08/15/2013 GARY LOAD OUT WORKER, INDIO J 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 08/15/2013 GARY [...] BOOTHE APRN 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 08/27/2013 RAJOTTE LOAD OUT WORKER, GENEVA A V05.3 HEP A (PED/ADOL 2-DOSE) DX 08/27/2013 GENEVA BOOTHE APRN A V06.1 TDAP DX 08/27/2013 ALLAN HILL, EFE Chapa V05.3 HEP A (PED/ADOL 2-DOSE) DX 08/27/2013 ALLAN HILL, EFE Chapa V06.1 TDAP DX 08/27/2013 GARY HANSON, INDIO J V05.3 HEP A (PED/ADOL 2-DOSE) DX 08/27/2013 GARY LOAD OUT WORKER, INDIO J V06.1 TDAP DX 08/27/2013 GARY [...] HEP A (PED/ADOL 2-DOSE) DX 08/27/2013 INDIO EVGA APRN J V06.1 TDAP DX 08/27/2013 INDIO [...] E821.9 04/29/2014 Ot E849.4 04/30/2014 MERVAT YU ORAL SURGERY PHYSICIAN Ot 787.91 04/30/2014 MARCI SAMSON MD Ot [...] V72.84 04/30/2014 Ot V74.8 04/30/2014 MERVAT YU ORAL SURGERY PHYSICIAN Ot 787.91 04/30/2014 MARCI SAMSON MD Ot 599.70 04/30/2014 MARCI SAMSNO MD Ot 959.9 04/30/2014 MARCI SAMSON MD [...] MARCI SAMSON MD Ot 786.05 07/12/2014 MADELAINE IRVERA, DENNIS Samson Ot 382.9 OTITIS MEDIA NOS [...] 09/14/2014 MARCI SAMSON MD Ot 780.60 09/16/2014 MARCI SAMSON MD Ot 780.60 09/21/2014 MARCI SAMSON MD Ot 780.60 09/22/2014 MARCI SAMSON MD Ot 780.60 10/08/2014 MARCI SAMSON MD Ot 780.60 10/20/2014 MARCI SAMSON MD Ot 780.60 FEVER, UNSPECIFIED 10/21/2014 MARCI SAMSON MD Ot 780.60 12/04/2014 Ot 780.60 [...] OTHER PREPROCEDURAL EXAMIN 11/15/2015 KYRIE RIVERA, SHELLY oRdriguez Ot R19.7 DIARRHEA, UNSPECIFIED 11/15/2015 KYRIE RIVERA, SHELLY Rodriguez Ot Z80.0 FAMILY HISTORY OF MALIGNANT NEOPLASM OF 11/16/2015 SHELLY MITTAL MD Ot R19.7 DIARRHEA, UNSPECIFIED 11/16/2015 KYRIE RIVERA, SHELLY Rodriguez Ot Z80.0 FAMILY HISTORY OF MALIGNANT NEOPLASM OF 06/27/2016 JAMEL MOSELEY APRN Ot M79.671 PAIN IN RIGHT FOOT 06/29/2016 JAMEL MOSELEY LOAD OUT WORKER Ot M79.671 PAIN IN RIGHT FOOT 07/11/2016 JAMEL MOSELEY APRN Ot M79.671 PAIN IN RIGHT FOOT Procedures Code [place] [address] PSYCH DIAGNOSTIC EVALUATION 08/15/2013 17186 PSYTX PT&/FAMILY 45 MINUTES 09/12/2013 77882 PSYTX PT&/FAMILY 45 MINUTES 02/17/2014 03.31 12/04/2014 Results Test Result Range Influenza virus A and B antigen detection - 04/07/17 22:14 FLU RESULT NEGATIVE FOR INFLUENZA A AND B ANTIGENS BY [facility] Complete blood count (CBC) with automated white blood cell (WBC) differential - 04/07/17 22:28 Blood leukocytes automated count (number/volume) 14.9 10*3/uL 4.3-11.0 Blood erythrocytes automated count (number/volume) 4.49 10*6/uL 4.35-5.85 Venous blood hemoglobin measurement (mass/volume) 14.1 g/dL 13.3-17.7 Blood hematocrit (volume fraction) 42 % 40-54 Automated erythrocyte mean corpuscular volume 92 [foz_us] 80-99 Automated erythrocyte mean corpuscular hemoglobin (mass per erythrocyte) 31 pg 25-34 Automated erythrocyte mean corpuscular hemoglobin concentration measurement ( mass/volume) 34 g/dL 32-36 Automated erythrocyte distribution width ratio 14.4 % 10.0-14.5 Automated blood platelet count (count/volume) 256 10*3/uL 130-400 Automated blood platelet mean volume measurement 9.6 [[facility]] 7.4-10.4 Automated blood neutrophils/100 leukocytes 71 % 42-75 Automated blood lymphocytes/100 leukocytes 15 % 12-44 Blood monocytes/100 leukocytes 13 % 0-12 Automated blood eosinophils/100 leukocytes 1 % 0-10 Automated blood basophils/100 leukocytes 0 % 0-10 Blood neutrophils automated count (number/volume) 10.6 10*3 1.8-7.8 Blood lymphocytes automated count (number/volume) 2.3 10*3 1.0-4.0 Blood monocytes automated count (number/volume) 1.9 10*3 0.0-1.0 Automated eosinophil count 0.1 10*3/uL 0.0-0.3 Automated blood basophil count (count/volume) 0.0 10*3/uL 0.0-0.1 Comprehensive metabolic panel - 04/07/17 22:28 Serum or plasma sodium measurement (moles/volume) 140 mmol/L 135-145 Serum or plasma potassium measurement (moles/volume) 3.6 mmol/L 3.6-5.0 Serum or plasma chloride measurement (moles/volume) 109 mmol/L 98-107 Carbon dioxide 20 mmol/L 21-32 Serum or plasma anion gap determination (moles/volume) 11 mmol/L 5-14 Serum or plasma urea nitrogen measurement (mass/volume) 11 mg/dL 7-18 Serum or plasma creatinine measurement (mass/volume) 0.82 mg/dL 0.60-1.30 Serum or plasma urea nitrogen/creatinine mass ratio 13 NRG Serum or plasma creatinine measurement with calculation of estimated glomerular filtration rate > NRG Serum or plasma glucose measurement (mass/volume) 113 mg/dL 70-105 Serum or plasma calcium measurement (mass/volume) 8.9 mg/dL 8.5-10.1 Serum or plasma total bilirubin measurement (mass/volume) 0.5 mg/dL 0.1-1.0 Serum or plasma alkaline phosphatase measurement (enzymatic activity/volume) 102 U/L 40-136 Serum or plasma aspartate aminotransferase measurement (enzymatic activity/ volume) 149 U/L 5-34 Serum or plasma alanine aminotransferase measurement (enzymatic activity/volume ) 195 U/L 0-55 Serum or plasma protein measurement (mass/volume) 6.3 g/dL 6.4-8.2 Serum or plasma albumin measurement (mass/volume) 4.1 g/dL 3.2-4.5 Blood manual differential performed detection - 04/07/17 22:28 Blood monocytes/100 leukocytes 10 % NRG Manual blood segmented neutrophils/100 leukocytes 69 % NRG Blood band neutrophils/100 leukocytes 0 % NRG Manual blood lymphocytes/100 leukocytes 17 % NRG Manual eosinophils/100 leukocytes in nose 0 % NRG Manual blood basophils/100 leukocytes 0 % NRG Blood lymphocytes variant/100 leukocytes 4 % NRG Blood anisocytosis detection by light microscopy SLIGHT NRG Blood ovalocytes detection by light microscopy SLIGHT NRG Blood poikilocytosis detection by light microscopy SLIGHT NRG Blood hypersegmented neutrophils detection by light microscopy SLIGHT NRG Bacterial blood culture - 04/07/17 22:28 Bacterial blood culture NG NRG Bacterial blood culture - 04/07/17 22:44 Bacterial blood culture NG NRG Blood lactic acid measurement (moles/volume) - 04/07/17 23:10 Blood lactic acid measurement (moles/volume) 1.09 mmol/L 0.50-2.00 Encounters ACCT No. Visit Date/Time Discharge Status Pt. Type Provider Facility Loc./Unit Complaint [id number] 07/22/2014 11:38:00 07/22/2014 23:59:59 CLS Outpatient GENEVA BOOTHE APRN [id number] 07/16/2014 10:44:00 07/16/2014 23:59:59 CLS Outpatient INDIO VEGA APRN [id number] 05/19/2014 16:12:00 05/19/2014 23:59:59 CLS Outpatient INDIO VEGA APRN [id number] 03/25/2014 10:50:00 03/25/2014 23:59:59 CLS Outpatient FREDERICK CARLSON DO [id number] 03/19/2014 15:36:00 03/19/2014 23:59:59 CLS Outpatient INDIO VEGA APRN [id number] 02/19/2014 18:26:00 02/19/2014 23:59:59 CLS Outpatient JUSTIN OVALLE DO [id number] 02/17/2014 16:09:00 02/17/2014 23:59:59 CLS Outpatient EFE LEMUS PHD [id number] 01/22/2014 14:23:00 01/22/2014 23:59:59 CLS Outpatient GARY VALENTIN INDIO J [id number] 01/22/2014 14:23:00 01/22/2014 23:59:59 CLS Outpatient GARY VALENTIN INDIO Dov [id number] 12/18/2013 15:16:00 12/18/2013 23:59:59 CLS Outpatient GARY HERBERTJacque INDIO Dov [id number] 12/18/2013 15:16:00 12/18/2013 23:59:59 CLS Outpatient GARY HERBERTJacque INDIO Dov [id number] 11/13/2013 10:56:00 11/13/2013 23:59:59 CLS Outpatient GARY VALENTIN INDIO Dov [id number] 10/16/2013 08:38:00 10/16/2013 23:59:59 CLS Outpatient GARY HERBERTJacque INDIO Dov [id number] 09/12/2013 15:12:00 09/12/2013 23:59:59 CLS Outpatient EFE LEMUS PHD [id number] 08/27/2013 14:52:00 08/27/2013 23:59:59 CLS Outpatient GENEVA BOOTHE APRN [id number] 08/15/2013 08:00:00 08/15/2013 23:59:59 CLS Outpatient EFE LEMUS PHD [id number] 09/04/2012 10:36:00 Document Registration [id number] 08/07/2012 13:25:00 Document Registration [id number] 06/27/2016 12:01:00 06/27/2016 23:59:59 CLS Outpatient JAMEL MOSELEY APRN [facility] RAD RT FOOT PAIN [id number] 11/15/2015 09:35:00 11/15/2015 13:50:00 DIS Outpatient SHELLY MITTAL MD [facility] SDC BLOOD IN STOOL [id number] 11/12/2015 10:00:00 11/12/2015 11:50:00 DIS Outpatient KYRIE RIVERA, SHELLY Rodriguez [facility] PREOP BLOOD IN STOOL [id number] 10/13/2015 19:03:00 10/13/2015 20:09:00 DIS Emergency MARY RIVERA, ANMOL Dior [facility] ER BLOOD IN STOOL [id number] 01/31/2015 23:32:00 02/01/2015 00:04:00 DIS Emergency MARTÍN SALGADO DO K [facility] ER [id number] 12/04/2014 21:35:00 12/07/2014 12:41:00 DIS Inpatient MARCI SAMSON MD [facility] SURGICAL [id number] 10/21/2014 00:10:00 10/21/2014 23:59:59 CLS Preadmit MARCI SAMSON MD [facility] LAB [id number] 07/22/2014 15:45:00 10/20/2014 00:01:00 DIS Outpatient MARCI SAMSON MD [facility] LAB [id number] 09/14/2014 13:17:00 09/14/2014 23:59:59 CLS Outpatient MARCI SAMSON MD [facility] RAD [id number] 07/12/2014 02:59:00 07/12/2014 05:41:00 DIS Emergency MADELAINE RIVERA, DENNIS Samson [facility] ER [id number] 04/30/2014 14:14:00 04/30/2014 23:59:59 CLS Outpatient MARCI SAMSON MD [facility] RAD [id number] 04/10/2014 11:30:00 04/10/2014 23:59:59 CLS Preadmit MARCI SAMSON MD [facility] CARD [id number] 01/09/2014 11:29:00 04/09/2014 00:01:00 DIS Outpatient MARCI SAMSON MD [facility] CARD [id number] 03/10/2014 10:42:00 03/10/2014 23:59:59 CLS Outpatient MARCI SAMSON MD [facility] RAD [id number] 02/19/2014 23:45:00 02/21/2014 13:35:00 DIS Outpatient STEFAN RIVERA, NAM Prajapati [facility] [id number] 02/09/2014 16:00:00 02/09/2014 23:59:59 CLS Outpatient MERVAT YU [facility] LAB [id number] 01/28/2014 15:42:00 01/28/2014 23:59:59 CLS Outpatient [id number] 01/10/2014 22:58:00 01/11/2014 00:22:00 DIS Emergency STEPHANIE RIVERA, MARTI Chapa [facility] ER [id number] 08/13/2012 18:50:00 08/13/2012 23:59:59 CLS Emergency [id number] 04/07/2017 22:41:00 Document Registration [id number] 04/29/2014 09:39:00 Document Registration [id number] 04/29/2014 09:39:00 Document Registration [id number] 06/29/2012 13:23:00 Document Registration [id number] 06/28/2012 05:55:00 Document Registration [id number] 06/26/2012 10:21:00 Document Registration [id number] 05/31/2012 10:05:00 Document Registration [id number] 05/07/2012 08:15:00 Document Registration [id number] 02/12/2012 10:39:00 Document Registration [id number] 02/02/2012 01:49:00 Document Registration [id number] 10/03/2011 14:04:00 Document Registration [id number] 07/26/2011 11:45:00 Document Registration [id number] 12/21/2010 11:40:00 Document Registration [id number] 07/18/2010 14:28:00 Document Registration [id number] 02/15/2010 09:20:00 Document Registration [id number] 02/01/2010 14:37:00 Document Registration [id number] 01/17/2010 10:07:00 Document Registration [id number] 01/06/2010 10:14:00 Document Registration [id number] 01/05/2010 14:57:00 Document Registration [id number] 08/19/2009 21:07:00 Document Registration
[2017-04-08 21:03] LABS: BASOPHILS % (AUTO) 0 % (0-10); EOSINOPHILS % (AUTO) 0 % (0-10); LYMPHOCYTES # (AUTO) 1.2 X 10^3 (1.0-4.0); LYMPHOCYTES % (AUTO) 7 % (12-44); MEAN CORPUSCULAR HEMOGLOBIN 31 PG (25-34); MEAN CORPUSCULAR HGB CONC 33 G/DL (32-36); MEAN CORPUSCULAR VOLUME 92 FL (80-99); MEAN PLATELET VOLUME 9.6 FL (7.4-10.4); MONOCYTES # (AUTO) 1.4 X 10^3 (0.0-1.0); MONOCYTES % (AUTO) 8 % (0-12); NEUTROPHILS # (AUTO) 15.9 X 10^3 (1.8-7.8); NEUTROPHILS % (AUTO) 86 % (42-75); PLATELET COUNT 287 10^3/uL (130-400); RED CELL DISTRIBUTION WIDTH 14.8 % (10.0-14.5); WHITE BLOOD COUNT 18.5 10^3/uL (4.3-11.0)
[2017-04-08 21:32] LABS: NEUTROPHILS % (MANUAL) 85 %
[2017-04-08 21:33] LABS: BAND NEUTROPHILS 2 %; BASOPHILS % (MANUAL) 0 %; EOSINOPHILS % (MANUAL) 0 %; LYMPHOCYTES % (MANUAL) 5 %; POIKILOCYTOSIS SLIGHT; REACTIVE LYMPHOCYTES 2 %
[2017-04-08 21:35] LABS: ALANINE AMINOTRANSFERASE 353 U/L (0-55); ALBUMIN 4.4 GM/DL (3.2-4.5); ANION GAP 13 MMOL/L (5-14); ASPARTATE AMINO TRANSFERASE 231 U/L (5-34); BILIRUBIN,TOTAL 0.8 MG/DL (0.1-1.0); BLOOD UREA NITROGEN 14 MG/DL (7-18); BUN/CREATININE RATIO 17; CALCIUM 9.5 MG/DL (8.5-10.1); CARBON DIOXIDE 21 MMOL/L (21-32); CHLORIDE 105 MMOL/L (98-107); CREATININE SERUM 0.82 MG/DL (0.60-1.30); GFR ESTIMATED > 60; GLUCOSE 114 MG/DL (70-105); POTASSIUM 3.7 MMOL/L (3.6-5.0); SODIUM 139 MMOL/L (135-145); TOTAL PROTEIN 6.9 GM/DL (6.4-8.2); hs C REACTIVE PROTEIN 0.03 MG/DL (0.00-0.50)
--- NOTE | 2017-04-09 00:18 | ED General ---
General Chief Complaint: Fever-Adult/Adol Stated Complaint: FEVER 105.8 Nursing Triage Note: fever of 105 at home states took ice bath, unable to take tylenol nor motrin due to elevated liver enzymes. Allergies and Home Medications Allergies Coded Allergies: No Known Drug Allergies (Verified , 05/17/09) Home Medications Azithromycin 500 Mg Tablet, 500 MG PO DAILY, #5 FOR INFECTION Prescribed by: MARTÍN MOON on 04/07/17 2340 Benzonatate 100 Mg Capsule, 1-2 TAB PO TID, #30 Prescribed by: MARTÍN MOON on 04/07/17 2322 Cefdinir 300 Mg Capsule, 300 MG PO BID, #20 Prescribed by: MARTÍN MOON on 04/07/17 2322 D-Methorphan Hb/Prometh HCl 118 Ml Syrup, 1-2 TSP PO Q4H, #120 Prescribed by: MARTÍN MOON on 04/07/17 2322 Guaifenesin/Dextromethorphan 1 Each Tbmp.12hr, 1 EACH PO BID for 10 Days, #20 Prescribed by: MARTÍN MOON on 04/07/17 2322 Past Ddiossf-Uorcgg-Xshyux Hx Patient Social History Recent Foreign Travel: No Contact w/Someone Who Travel: No Recent Infectious Disease Expo: No Recent Hopitalizations: Yes (PNEUMONIA AND ABD PAIN) Immunizations Up To Date Tetanus Booster (TDap): Less than 5yrs PED Vaccines UTD: Yes Date of Influenza Vaccine: Jan 13, 2014 Seasonal Allergies Seasonal Allergies: No Surgeries History of Surgeries: Yes (RESECTION OF EPIDIDYMAL CYST, BMT'S; COLONOSCOPY) Surgeries: Adenoidectomy, Ear Surgery, Testicular, Tonsillectomy Respiratory History of Respiratory Disorde: Yes (EXERCISE INDUCED ASTHMA, FREQUENT BOUTS OF PNEUMONIA A CHILD) Respiratory Disorders: Asthma, Pneumonia Currently Using CPAP: No Currently Using BIPAP: No Cardiovascular History of Cardiac Disorders: No Neurological History of Neurological Disord: Yes (TOURETTE'S, 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) Neurological Disorders: Meningitis Reproductive System Hx Reproductive Disorders: No Sexually Transmitted Disease: No HIV/AIDS: No Gastrointestinal History of Gastrointestinal Di: Yes Gastrointestinal Disorders: Ulcer, Irritable Bowel Musculoskeletal History of Musculoskeletal Dis: Yes (RIGHT ARM FX, FINGERS/TOES FX) Musculoskeletal Disorders: Fractures Endocrine History of Endocrine Disorders: Yes Endocrine Disorders: Lupus HEENT History of HEENT Disorders: Yes HEENT Disorders: Chronic Ear Infection Cancer History of Cancer: No Psychosocial History of Psychiatric Problem: Yes (MOOD DISORDER) Behavioral Health Disorders: ADD/ADHD Integumentary History of Skin or Integumenta: No Blood Transfusions History of Blood Disorders: No Adverse Reaction to a Blood Tr: No Family Medical History Family Medial History: FH: Raynaud's phenomenon FH: depression 19 MOTHER G8 SISTER FH: lupus erythematosus 19 MOTHER G8 SISTER FH: osteoporosis 19 MOTHER FH: skin cancer 19 MOTHER Leesa thyroiditis 19 MOTHER Hemolytic anemia 19 MOTHER Hypertension 19 FATHER Hypotension 19 MOTHER POST TRAUMATIC STRESS DISORDER 19 MOTHER No Family History of: AIDS Abdominal aortic aneurysm [place]'s disease Alcoholism Alzheimer's disease Aphasia Arthritis Asthma Cancer of mouth Cardiovascular disease Cataracts Colon cancer Completed stroke Congenital disease Congenital heart disease Coronary thrombosis Cystic fibrosis Deafness or hearing loss Dementia Diabetes mellitus Drug abuse Dysphasia Fibrocystic disease of breast Gastroenteritis Glaucoma Headache disorder Hypercholesterolemia Infertility Kidney disease Myocardial infarction Neoplasm Not obtainable due to adoption Osteoporosis Parkinson's disease Prostate cancer Psychosocial problem Respiratory disorder Seizure disorder Severe allergy Thyroid disease Tuberculosis Visual disorder Physical Exam Vital Signs Vital Sign - Last 12Hours 04/08/17 19:52 Temp 99.1 Pulse 97 B/P (MAP) 144/84 O2 Delivery Room Air Capillary Refill : Progress/Results/Core Measures Suspected Sepsis SIRS Temperature:98.3 Pulse: Respiratory Rate: Laboratory Tests 04/08/17 20:54: White Blood Count 18.5H Blood Pressure / Mean: Laboratory Tests 04/08/17 20:54: Creatinine 0.82, Platelet Count 287, Total Bilirubin 0.8 Results/Orders Lab Results Laboratory Tests Test 04/08/17 20:54 Range/Units White Blood Count 18.5 H 4.3-11.0 10^3/uL Red Blood Count 4.80 4.35-5.85 10^6/uL Hemoglobin 14.8 13.3-17.7 G/DL Hematocrit 44 40-54 % Mean Corpuscular Volume 92 80-99 FL Mean Corpuscular Hemoglobin 31 25-34 PG Mean Corpuscular Hemoglobin Concent 33 32-36 G/DL Red Cell Distribution Width 14.8 H 10.0-14.5 % Platelet Count 287 130-400 10^3/uL Mean Platelet Volume 9.6 7.4-10.4 FL Neutrophils (%) (Auto) 86 H 42-75 % Lymphocytes (%) (Auto) 7 L 12-44 % Monocytes (%) (Auto) 8 0-12 % Eosinophils (%) (Auto) 0 0-10 % Basophils (%) (Auto) 0 0-10 % Neutrophils # (Auto) 15.9 H 1.8-7.8 X 10^3 Lymphocytes # (Auto) 1.2 1.0-4.0 X 10^3 Monocytes # (Auto) 1.4 H 0.0-1.0 X 10^3 Eosinophils # (Auto) 0.0 0.0-0.3 10^3/uL Basophils # (Auto) 0.0 0.0-0.1 10^3/uL Neutrophils % (Manual) 85 % Lymphocytes % (Manual) 5 % Monocytes % (Manual) 6 % Eosinophils % (Manual) 0 % Basophils % (Manual) 0 % Band Neutrophils 2 % Hypersegmented Neutrophils SLIGHT Reactive Lymphocytes 2 % Toxic Granulation 1+ Poikilocytosis SLIGHT Elliptocytes SLIGHT Erythrocyte Sedimentation Rate 1 0-15 MM/HR Sodium Level 139 135-145 MMOL/L Potassium Level 3.7 3.6-5.0 MMOL/L Chloride Level 105 98-107 MMOL/L Carbon Dioxide Level 21 21-32 MMOL/L Anion Gap 13 5-14 MMOL/L Blood Urea Nitrogen 14 7-18 MG/DL Creatinine 0.82 0.60-1.30 MG/DL Estimat Glomerular Filtration Rate > 60 BUN/Creatinine Ratio 17 Glucose Level 114 H 70-105 MG/DL Calcium Level 9.5 8.5-10.1 MG/DL Total Bilirubin 0.8 0.1-1.0 MG/DL Aspartate Amino Transf (AST/SGOT) 231 H 5-34 U/L Alanine Aminotransferase (ALT/SGPT) 353 H 0-55 U/L Alkaline Phosphatase 113 40-136 U/L C-Reactive Protein High Sensitivity 0.03 0.00-0.50 MG/DL Total Protein 6.9 6.4-8.2 GM/DL Albumin 4.4 3.2-4.5 GM/DL Monoscreen NEGATIVE NEGATIVE My Orders Orders - DENNIS BURKETT MD Cbc With Automated Diff (04/08/17 20:40) Comprehensive Metabolic Panel (04/08/17 20:40) Hs C Reactive Protein (04/08/17 20:40) Monotest (04/08/17 20:40) Saline Lock/Iv-Start (04/08/17 20:40) Manual Differential (04/08/17 20:54) Us Gallbladder [id number] (04/08/17 21:54) Erythrocyte Sedimentation Rate (04/08/17 22:14) Vital Signs/I&O Vital Sign - Last 12Hours 04/08/17 04/08/17 19:52 20:59 Temp 99.1 98.3 Pulse 97 B/P (MAP) 144/84 O2 Delivery Room Air Capillary Refill : Departure Impression Impression: Primary Impression: Elevated liver enzymes Additional Impressions: Lupus 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 Decision time for Depature: 00:17 Referrals: YASSINE CONWAY MD (PCP/Family) Primary Care Physician Patient Instructions: Liver Function Test Add. Discharge Instructions: Complete the antibiotics as prescribed by Dr. Moon. Stay off of the methotrexate and discontinue Plaquenil until your able to discuss these medications and your elevated liver enzymes with your prescribing doctor. You should have your liver enzymes checked again by mid week this week. Please contact Dr. Conway or your provider on Sunday to arrange for blood draw. Return to the emergency room if symptoms worsen. You may take ibuprofen for fever but avoid use of Tylenol (acetaminophen) until liver function improves. All discharge instructions reviewed with patient and/or family. Voiced understanding. Copy Copies To 1: YASSINE CONWAY MD, JOSHUA T MD Apr 09, 2017 00:18
--- NOTE | 2017-04-09 06:15 | Diagnostic Imaging Report ---
DATE: 04/08/2017 11:48 p.m. REASON FOR EXAM: Elevated liver enzymes, fever. COMPARISON: None. TECHNIQUE: Routine liver/gallbladder ultrasound. FINDINGS: The liver is normal in size and shape. The liver echogenicity is within normal limits. There are no focal lesions. No intrahepatic biliary dilatation is present. The common bile duct is not dilated and measures 2 mm. The main portal vein is hepatopetal. The gallbladder is contracted. There is no evidence of cholelithiasis or gallbladder wall thickening or pericholecystic fluid. Sonographic Null's sign is negative. The visualized portions of the head and proximal body of the pancreas are within normal limits. The distal body and tail of the pancreas are not well visualized due to overlying bowel gas. The visualized portions of the IVC and aorta are normal. The right kidney measures approximately 12.1 cm in length and has a normal appearance. IMPRESSION: 1. Contracted gallbladder with no evidence of cholelithiasis or acute cholecystitis. No liver or gallbladder abnormality detected. Dictated by: Dictated on workstation # [id number]
== END 2017-04-09 00:27 | disposition home or self-care (01) ==
LOC: EDUNIT# 19:15 → ER 19:16
DX: M32.9 Systemic lupus erythematosus, unspecified (principal); R94.5 Abnormal results of liver function studies; J45.909 Unspecified asthma, uncomplicated; F90.9 Attention-deficit hyperactivity disorder, unspecified type; Z86.61 Personal history of infections of the central nervous system; Z87.19 Personal history of other diseases of the digestive system; Z87.01 Personal history of pneumonia (recurrent); Z90.89 Acquired absence of other organs
CPT/HCPCS: 36415; 76705; 80053; 85007; 85027; 85652; 86141; 86308